=== PATIENT | male | born 1990 | race Caucasian/White ===

== ENCOUNTER 2018-02-17 08:33 | Emergency (ER) | payer BC ==
[2018-02-17 08:42] VITALS: BP 140/82; PULSE 76; TEMP 97.6; BMI 27.0
[2018-02-17] MEDS ORDERED: SODIUM CHLORIDE 1,000 ML IV STA (08:45)
[2018-02-17] MEDS ORDERED: ONDANSETRON 4 MG/2 ML VIAL IVPB ONE (08:45)
--- NOTE | 2018-02-17 08:45 | PDOC ---
History of Present Illness - General Chief Complaint: Back Pain Stated Complaint: RT LOWER BACK PAIN Time Seen by Provider: 02/17/18 08:45 - History of Present Illness Initial Comments: 02/17/18 08:46 Chief complaint: Abdominal pain History of present illness: Right flank and right lower quadrant abdominal pain for approximately 2 hours. Pain is severe, doubling the patient over. There is nausea, no vomiting or diarrhea. Review of systems: No fever/chills, urinary tract symptoms such as dysuria frequency urgency hesitancy or hematuria, no melena or bloody stool or hematemesis, no chest pain shortness of breath recent URI symptoms, sore throat , cough. Remainder systems reviewed and found to be negative Past medical history: Healthy male, no prior significant medical or surgical problems. 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 Cooperative Afebrile, vital signs normal No pallor or icterus. PERRLA, fundi benign, ENT clear Neck supple without bruit mass or nodes Chest clear with full breath sounds bilaterally CV regular without murmur rub or gallop pulses full and symmetric no JVD or edema no bruits Abdomen nondistended. Bowel sounds normal. Soft without mass tenderness organomegaly. No CVAT Extremities no CCE Skin clear, no rash, adequate turgor and wet mucous membranes Neurological intact Impression: Presentation suggests renal colic. Other possibilities include severe gastroenteritis, cholecystitis, or early appendicitis Plan: IV hydration, antiemetic, and analgesics. CBC chemistries and urinalysis. Consider imaging studies are suggestive of significant intra-abdominal disease. Past History - Past Medical History Allergies/Adverse Reactions: Allergies Allergy/AdvReac Type Severity Reaction Status Date / Time No Known Allergies Allergy Verified 02/17/18 08:34 Home Medications: Ambulatory Orders NK [No Known Home Medication] 02/17/18 COPD: No - Surgical History Appendectomy: Yes - Suicide/Smoking/Psychosocial Hx Smoking History: Unknown if ever smoked Have you smoked in the past 12 months: No Information on smoking cessation initiated: No Hx Alcohol Use: No Drug/Substance Use Hx: No Substance Use Type: None *Physical Exam - Vital Signs Last Vital Signs Temp Pulse Resp BP Pulse Ox 97.6 F 76 20 140/82 100 02/17/18 08:34 02/17/18 08:34 02/17/18 08:34 02/17/18 08:34 02/17/18 08:34 ED Treatment Course - LABORATORY CBC & Chemistry Diagram: 02/17/18 09:02 02/17/18 09:02 Medical Decision Making - Medical Decision Making 02/17/18 11:58 CT reveals partially obstructing stone 4 mm just above the UVJ. Patient is completely comfortable at present. Pain has resolved. Discharge to follow-up with urologist with pain medication. Return to ER if pain becomes more severe and is prolonged and unresponsive to pain medication *DC/Admit/Observation/Transfer Diagnosis at time of Disposition: Renal colic - Discharge Dispostion Disposition: HOME Condition at time of disposition: Improved Decision to Admit order: No - Referrals Referrals: Eliel Pruitt MD [Staff Physician] - 1 week - Patient Instructions Printed Discharge Instructions: DI for Kidney Stones Additional Instructions: Rest, lots of fluids, and medication as needed for pain Return to ER if pain is prolonged and unresponsive to medication. Otherwise you must be rechecked by urologist within 1 week as directed. - Post Discharge Activity Forms/Work/School Notes: Back to Work
[2018-02-17] MEDS ORDERED: KETOROLAC TROMETHAMINE 30 MG/1 ML VIAL IVPUSH ONE (08:46)
[2018-02-17 08:51] LABS: PH,URINE 6.5 (4.5-8); URINE APPEARANCE SL CLOUDY; URINE BILIRUBIN Negative (NEGATIVE); URINE COLOR AMBER; URINE GLUCOSE (UA) Negative (NEGATIVE); URINE KETONE 1+ (NEGATIVE); URINE LEUK ESTERASE Negative (NEGATIVE); URINE NITRITE Negative (NEGATIVE); URINE PROTEIN Negative (NEGATIVE); URINE UROBILINOGEN 0.2 (0.2-1.0)
[2018-02-17] MEDS ORDERED: KETOROLAC TROMETHAMINE 30 MG/1 ML VIAL ONE (08:59)
[2018-02-17] MEDS ORDERED: ONDANSETRON 4 MG/2 ML VIAL ONE (08:59)
[2018-02-17] MEDS ORDERED: ACETAMINOPHEN INJECTION 100 ML IVPB ONE (09:07)
[2018-02-17] MEDS ORDERED: ACETAMINOPHEN 1000 MG/100 ML VIAL (NON FORMULARY) IVPB ONE (09:22)
[2018-02-17 09:26] LABS: ALBUMIN 4.5 g/dl (3.5-5.0); ALK PHOS 57 U/L (32-92); ANION GAP 11 (8-16); BILIRUBIN,TOTAL 0.5 mg/dl (0.2-1.0); BLOOD UREA NITROGEN 19 mg/dl (7-18); CALCIUM 9.5 mg/dl (8.4-10.2); CHLORIDE 104 mmol/L (98-107); CO2 21 mmol/L (22-28); CREATININE 1.1 mg/dl (0.6-1.3); GLUCOSE,RANDOM 154 mg/dl (74-106); POTASSIUM 3.5 mmol/L (3.5-5.1); SGOT/AST 32 U/L (10-42); SGPT/ALT 25 U/L (10-40); SODIUM 136 mmol/L (136-145); TOT PROT 7.1 g/dl (6.4-8.3)
[2018-02-17 09:27] LABS: URINE RBC >100 /hpf (0-3)
[2018-02-17 09:36] LABS: BASO % 0.9 % (0-2.0); EOS % 1.7 % (0-4.5); HEMATOCRIT 43.3 % (35.4-49); HEMOGLOBIN 14.3 GM/dl (11.7-16.9); LYMPH % 50.4 % (8-40); MCHC 33.1 g/dl (32.0-35.9); MEAN CELL VOLUME 84.5 fl (80-96); MEAN PLT VOLUME 9.7 fl (7.5-11.1); MONO % 6.4 % (3.8-10.2); NEUT % 40.6 % (42.8-82.8); PLATELET COUNT 267 K/MM3 (134-434); RBC 5.12 M/mm3 (4.00-5.60); RDW 12.4 % (11.9-15.9); WHITE BLOOD COUNT 7.4 K/mm3 (4.0-10.8)
[2018-02-17 11:58] LABS: LIPASE 158 U/L (73-393)
[2018-02-17] MEDS ORDERED: TAMSULOSIN HCL 0.4 MG CAP.ER.24H (FP) PO ONE (12:02)
[2018-02-17] MEDS ORDERED: TAMSULOSIN HCL 0.4 MG CAP.ER.24H (FP) ONE (12:20)
== END 2018-02-17 12:36 | disposition home or self-care (01) ==
LOC: FER 08:33
PROC: 3E033NZ Introduction of Analgesics, Hypnotics, Sedatives into Peripheral Vein, Percutaneous Approach (ICD-10-PCS; principal; 2018-02-17)
PROC: 3E0333Z Introduction of Anti-inflammatory into Peripheral Vein, Percutaneous Approach (ICD-10-PCS; 2018-02-17)
PROC: 3E033GC Introduction of Other Therapeutic Substance into Peripheral Vein, Percutaneous Approach (ICD-10-PCS; 2018-02-17)
PROC: 3E0337Z Introduction of Electrolytic and Water Balance Substance into Peripheral Vein, Percutaneous Approach (ICD-10-PCS; 2018-02-17)
DX: N23 Unspecified renal colic (principal)
CPT/HCPCS: 36415; 74176; 80053; 81003; 81015; 83690; 85025; 99283-25; J0131; J7030